=== PATIENT | male | born 1990 | race African-American/Black ===

== ENCOUNTER 2020-01-28 14:45 | Outpatient (CLI) | payer OTHER ==
[2020-01-28] MEDS ORDERED: OMNIPAQUE 350 MG/ML, 100ML BOTTLE ONE (15:23)
== END 2020-01-28 23:59 | disposition home or self-care (01) ==
LOC: CFH 14:45
PROVIDERS: ATTEND Family Medicine
DX: R47.81 Slurred speech (principal); R53.1 Weakness; G47.419 Narcolepsy without cataplexy; R06.83 Snoring; R51 Headache; R61 Generalized hyperhidrosis
CPT/HCPCS: 70470; Q9967